=== PATIENT | male | born 1980 | race Caucasian/White ===

== ENCOUNTER 2017-03-20 16:10 | Emergency (ER) | payer BC ==
[2017-03-20 16:17] VITALS: BP 135/70
[2017-03-20] MEDS ORDERED: Tetan/Diph/Pertus SYR(Tdap)* 0.5 ML SYR(BOOSTRIX) use SYR IM ONE (16:17)
--- NOTE | 2017-03-20 16:41 | UC ---
Bite Injury/Animal HPI - HPI Summary HPI Summary: The patient comes in today for: 1. Dog bite, posterior right thigh: Onset: 3 days ago. Palliative/provocative: Pressing on the area makes it worse. Quality: Stabbing sensation--like a muscle strain. Region: Posterior, lateral right thigh. Severity: 5/10 Time: Constant. Associated symptoms: Event: He climbed over this brother's home fence and his brother's dog came up behind him and bit him once. His brother's came and got the dog. The brother states that the dog has had all his shots. He has noticed over the next several days there has been more ecchymosis. There is less swelling, but about the same soreness. However, there is more redness. There is "a lot more black and blue." He has some induration, but no discharge. Fevers: No temperatures taken at home. Home treatment: Hydrogen peroxide. Last tetanus: He states that he is pretty sure that he has had his last tetanus in the last five years when he had a laceration repair. Pain control: He states that he does not want any medications for pain control. * - History of Current Complaint Chief Complaint: UCBiteInjury Stated Complaint: DOG BITE Time Seen by Provider: 03/20/17 16:30 Hx Obtained From: Patient - Allergies/Home Medications Allergies/Adverse Reactions: Allergies Allergy/AdvReac Type Severity Reaction Status Date / Time No Known Allergies Allergy Verified 09/08/16 16:15 PMH/Surg Hx/FS Hx/Imm Hx Previously Healthy: Yes Other History Of: Negative For: HIV, Hepatitis B, Hepatitis C, Anticoagulant Therapy - Surgical History Surgical History: None - Family History Known Family History: Positive: Hypertension, Diabetes, Other - Cancer, diverticulitis Negative: Cardiac Disease - Social History Occupation: Employed Full-time Alcohol Use: None Substance Use Type: None Smoking Status (MU): Never Smoked Tobacco Type: Smokeless Tobacco Amount Used/How Often: 1 can per day Length of Time of Smoking/Using Tobacco: Since he was 18 years old Have You Smoked in the Last Year: No Household Exposure Type: Cigarettes - Immunization History Most Recent Influenza Vaccination: never Most Recent Tetanus Shot: up to date Most Recent Pneumonia Vaccination: never Review of Systems Constitutional: Negative Skin: Rash Eyes: Negative ENT: Negative Respiratory: Negative Cardiovascular: Negative Gastrointestinal: Negative Genitourinary: Negative All Other Systems Reviewed And Are Negative: Yes Physical Exam Triage Information Reviewed: Yes Appearance: Well-Appearing, No Pain Distress, Well-Nourished Vital Signs: Initial Vital Signs Temp 101.0 F 03/20/17 16:13 Pulse 77 03/20/17 16:13 Resp 18 03/20/17 16:13 BP 135/70 03/20/17 16:13 Pulse Ox 98 03/20/17 16:13 Vital Signs Reviewed: Yes Eyes: Positive: Conjunctiva Clear. Negative: Discharge ENT: Positive: Hearing grossly normal. Negative: Pharyngeal erythema, Nasal congestion, Nasal drainage, TM bulging, TM dull, TM red, Tonsillar swelling, Tonsillar exudate Dental: Negative: Gross Decay/Caries @, Dental Fracture @ Neck: Positive: Supple, Nontender, No Lymphadenopathy. Negative: Nuchal Rigidity Respiratory: Positive: Chest non-tender, Lungs clear, No respiratory distress, No accessory muscle use. Negative: Crackles, Wheezing Cardiovascular: Positive: RRR, No Murmur Abdomen Description: Positive: Nontender, No Organomegaly, Soft. Negative: Distended, Guarding Musculoskeletal: Positive: Strength Intact, ROM Intact Neurological: Positive: Alert, Muscle Tone Normal Psychological: Positive: Age Appropriate Behavior, Consolable Skin: Positive: rashes - He has an ecchymotic area: 10 cm x 10 cm. Induration area: 4 cm x 3 cm. There is no fluctuance. There is no enlarged or tender right inquinal lymph nodes. Bite Injury Course/Dx - Differential Dx/Diagnosis Differential Diagnosis/HQI/PQRI: Cellulitis Provider Diagnoses: contusion of the right thigh. Dog bite of the right thigh Discharge - Discharge Plan Condition: Stable Disposition: HOME Patient Education Materials: Animal Bite (ED), Contusion in Adults (ED) Referrals: Ady Ramesh MD [Primary Care Provider] - 1 Week (Please see your primary care provider in a week to see how well you are doing. If you get worse, please be seen sooner in the ER or through us.)
== END 2017-03-20 17:05 | disposition home or self-care (01) ==
LOC: UCEAST 16:10
DX: S70.11XA Contusion of right thigh, initial encounter (principal); W54.0XXA Bitten by dog, initial encounter; Y92.007 Garden or yard of unspecified non-institutional (private) residence as the place of occurrence of the external cause; F17.220 Nicotine dependence, chewing tobacco, uncomplicated
CPT/HCPCS: 99212; G0463

== ENCOUNTER 2019-10-14 10:37 | Emergency (ER) | payer BC ==
--- NOTE | 2019-10-14 10:45 | UC ---
Cardiac HPI - HPI Summary HPI Summary: 39 yo male presents with abdominal pain. He tells me that over the last week he has had a burning in his chest with pain in his epigastric region. He has vomited when trying to eat or drink anything for the last week. He has also had diarrhea multiple times daily. Additionally, he reports left neck pain that radiates into his left shoulder and arm that is intermittent. Does not change or reproduce with movement or palpation. Not associated with any activity. He has tried taking tums and baking soda for his stomach with no relief. He has a hx of diverticulitis and is concerned about this today. He does smoke and drink daily. Last night had chest pain that lasted about 20minutes before subsided. Denies fever, chills, SOB, back pain, dysuria, blood in stool. - History of Current Complaint Stated Complaint: ABDOMINAL PAIN Time Seen by Provider: 10/14/19 10:44 Hx Obtained From: Patient Onset/Duration: Sudden Onset Initial Severity: Mild Current Severity: Mild Pain Intensity: 3 - Allergy/Home Medications Allergies/Adverse Reactions: Allergies Allergy/AdvReac Type Severity Reaction Status Date / Time No Known Allergies Allergy Verified 10/14/19 11:34 PMH/Surg Hx/FS Hx/Imm Hx - Additional Past Medical History Additional PMH: None Other History Of: Negative For: HIV, Hepatitis B, Hepatitis C, Anticoagulant Therapy - Surgical History Surgical History: None - Family History Known Family History: Positive: Hypertension, Diabetes, Other - Cancer, diverticulitis Negative: Cardiac Disease - Social History Occupation: Employed Full-time Lives: With Family Alcohol Use: None Substance Use Type: None Smoking Status (MU): Never Smoked Tobacco Type: Smokeless Tobacco Amount Used/How Often: 1 can per day Length of Time of Smoking/Using Tobacco: Since he was 18 years old Have You Smoked in the Last Year: No Household Exposure Type: Cigarettes - Immunization History Most Recent Influenza Vaccination: never Most Recent Tetanus Shot: up to date Most Recent Pneumonia Vaccination: never Review of Systems All Other Systems Reviewed And Are Negative: No Constitutional: Positive: Negative Skin: Positive: Negative Eyes: Positive: Negative ENT: Positive: Negative Respiratory: Positive: Negative Cardiovascular: Positive: Chest Pain Gastrointestinal: Positive: Abdominal Pain, Vomiting, Diarrhea, Nausea Genitourinary: Positive: Negative Neurovascular: Positive: Negative Neurological: Positive: Negative Psychological: Positive: Negative Physical Exam - Summary Physical Exam Summary: GENERAL: NAD. WDWN. No pain distress. SKIN: No rashes, sores, lesions, or open wounds. NECK: Supple. Nontender. No lymphadenopathy. CHEST: CTAB. No r/r/w. No accessory muscle use. Breathing comfortably and in no distress. CV: RRR. Pulses intact. Cap refill <2seconds ABDOMEN: Soft. Mild ttp epigastric region. No distention or guarding. No CVA tenderness. Bowel sounds present NEURO: Alert. PSYCH: Age appropriate behavior. Triage Information Reviewed: Yes Vital Signs: Vital Signs: Temp Pulse Resp BP Pulse Ox 98.7 F 73 20 154/95 99 10/14/19 10:50 10/14/19 10:50 10/14/19 10:50 10/14/19 10:50 10/14/19 10:50 Vital Signs Reviewed: Yes Diagnostics - EKG Summary of EKG Findings: EKG 71bpm NSR. No STEMI as read by Dr. Nj - Assessment/Plan Course Of Treatment: EKG as above. I have a low suspicion that his symptoms are cardiac related. Given his smoking and alcohol history with 1 week of epigastric pain and vomiting - this could represent an ulcer, pancreatitis, or biliary pathology. He does have a hx of diverticulitis - he is most concerned about this today. Recommend going to the ED for further evaluation - pt agreeable to this and will go there now. - Clinical Impression Provider Diagnosis: Epigastric pain, Chest pain, Vomiting Discharge ED - Sign-Out/Discharge Documenting (check all that apply): Patient Departure All imaging exams completed and their final reports reviewed: No Studies - Discharge Plan Condition: Stable Disposition: HOME-RECOMMEND TO ED Referrals: Ady Ramesh MD [Primary Care Provider] - Additional Instructions: Please go to the ER for further evaluation of your abdominal pain and vomiting - Billing Disposition and Condition Condition: STABLE Disposition: Home-Recommend to ED - Attestation Statements Provider Attestation: This patient was not seen by me. I was available for consult. Chart reviewed. KYREE
[2019-10-14 10:56] VITALS: BP 154/95
== END 2019-10-14 11:00 | disposition home health service (06) ==
LOC: UCEAST 10:37
DX: R07.9 Chest pain, unspecified (principal); R10.13 Epigastric pain; R11.10 Vomiting, unspecified; M54.2 Cervicalgia; R11.0 Nausea; R19.7 Diarrhea, unspecified
CPT/HCPCS: 99212; G0463

== ENCOUNTER 2019-10-14 11:22 | Emergency (ER) | payer BC ==
--- NOTE | 2019-10-14 12:17 | ED ---
Abdominal Pain/Male - HPI Summary HPI Summary: 39 y/o male presented to [facility] complaining of upper abdominal pain in the epigastric present for the last week. Pt has had yellow diarrhea, bright yellow urine, nausea, and vomiting with decreased appetite. He states that he feels bloated and has neck pain that radiates down through his left arm. He went into work this morning but notes that he feels fatigued. Symptoms rated 4/10 in severity. He has a Hx of diverticulitis for which he was in [facility] for 8-9 days as well as Hx of degenerative disc disease. He takes medical marijuana chronically for pain. He does not drink alcohol. - History of Current Complaint Chief Complaint: EDAbdPain Stated Complaint: ABD PAIN Time Seen by Provider: 10/14/19 12:11 Hx Obtained From: Patient Onset/Duration: Lasting Days - one week, Still Present Timing: Constant Severity Currently: Moderate Pain Intensity: 4 Pain Scale Used: 0-10 Numeric Location: Epigastric Radiates: No Aggravating Factor(s): Food Alleviating Factor(s): Nothing Associated Signs And Symptoms: Positive: Decreased Appetite, Nausea, Vomiting, Diarrhea - yellow, Other - decreased oral intake, bright yellow urine, fatigue. Negative: Constipation - Allergies/Home Medications Allergies/Adverse Reactions: Allergies Allergy/AdvReac Type Severity Reaction Status Date / Time No Known Allergies Allergy Verified 10/14/19 11:34 PMH/Surg Hx/FS Hx/Imm Hx Endocrine/Hematology History: Denies: Hx Anticoagulant Therapy, Hx Diabetes, Hx Thyroid Disease Cardiovascular History: Denies: Hx Congestive Heart Failure, Hx Deep Vein Thrombosis, Hx Hypertension , Hx Myocardial Infarction, Hx Pacemaker/ICD Respiratory History: Denies: Hx Asthma, Hx Chronic Obstructive Pulmonary Disease (COPD), Hx Lung Cancer, Hx Pneumonia, Hx Pulmonary Embolism GI History: Reports: Other GI Disorders - diverticulitis Denies: Hx Gall Bladder Disease, Hx Gastrointestinal Bleed, Hx Ulcer, Hx Urosepsis History: Denies: Hx Kidney Stones, Hx Renal Disease Musculoskeletal History: Reports: Hx Back Problems - degenerative disc disease Neurological History: Denies: Hx Dementia, Hx Migraine, Hx Seizures, Hx Transient Ischemic Attacks (TIA) Psychiatric History: Denies: Hx Anxiety, Hx Depression, Hx Schizophrenia, Hx Bipolar Disorder - Surgical History Surgical History: None Surgery Procedure, Year, and Place: none Infectious Disease History: No Infectious Disease History: Denies: Hx Clostridium Difficile, Hx Hepatitis, Hx Human Immunodeficiency Virus (HIV), Hx of Known/Suspected MRSA, Hx Shingles, Hx Tuberculosis, Hx Known/ Suspected VRE, Hx Known/Suspected VRSA, History Other Infectious Disease, Traveled Outside the [place] in Last 30 Days - Family History Known Family History: Positive: Hypertension, Diabetes, Other - Cancer, diverticulitis Negative: Cardiac Disease - Social History Alcohol Use: None Hx Substance Use: No Substance Use Type: Reports: None Substance Use Comment - Amount & Last Used: medical marijuana for djd and divertic Hx Tobacco Use: Yes Smoking Status (MU): Never Smoked Tobacco Type: Smokeless Tobacco Amount Used/How Often: 1 can per day Length of Time of Smoking/Using Tobacco: Since he was 18 years old Have You Smoked in the Last Year: No Review of Systems Positive: Fatigue Positive: Abdominal Pain - epigastric, Vomiting, Diarrhea - yellow, Other - decreased appetite/oral intake Positive: other - bright yellow urine Positive: Myalgia - neck radiating to arm All Other Systems Reviewed And Are Negative: Yes Physical Exam - Summary Physical Exam Summary: Appearance: The patient is well-nourished in no acute distress and in no acute pain. Skin: The skin is warm and dry, and skin color reflects adequate perfusion. HEENT: The head is normocephalic and atraumatic. The pupils are equal and reactive. The conjunctivae are clear and without drainage. Nares are patent and without drainage. Mouth reveals moist mucous membranes, and the throat is without erythema and exudate. The external ears are intact. The ear canals are patent and without drainage. The tympanic membranes are intact. Neck: The neck is supple with full range of motion and non-tender. There are no carotid bruits. There is no neck vein distension. Respiratory: Chest is non-tender. Lungs are clear to auscultation and breath sounds are symmetrical and equal. Cardiovascular: Heart is regular rate and rhythm. There is no murmur or rub auscultated. There is no peripheral edema and pulses are symmetrical and equal. Abdomen: The abdomen is soft with tenderness in the epigastrium. There are normal bowel sounds heard in all four quadrants and there is no organomegaly palpated. Musculoskeletal: There is no back tenderness noted. Extremities are non-tender with full range of motion. There is good capillary refill. There is no peripheral edema or calf tenderness elicited. Neurological: Patient is alert and oriented to person, place and time. The patient has symmetrical motor strength in all four extremities. Cranial nerves are grossly intact. Deep tendon reflexes are symmetrical and equal in all four extremities. Psychiatric: The patient has an appropriate affect and does not exhibit any anxiety or depression. Triage Information Reviewed: Yes Vital Signs On Initial Exam: Initial Vitals Temp Pulse Resp BP Pulse Ox 99.0 F 75 19 131/89 98 10/14/19 11:32 10/14/19 11:32 10/14/19 11:32 10/14/19 11:32 10/14/19 11:32 Vital Signs Reviewed: Yes Procedures - Sedation Patient Received Moderate/Deep Sedation with Procedure: No Diagnostics - Vital Signs Vital Signs Temp Pulse Resp BP Pulse Ox 10/14/19 11:32 99.0 F 75 19 131/89 98 - Laboratory Result Diagrams: 10/14/19 12:28 10/14/19 12:28 Lab Statement: Any lab studies that have been ordered have been reviewed, and results considered in the medical decision making process. - CT Abd/Pel CT CT Interpretation Completed By: Radiologist Summary of CT Findings: IMPRESSION: DIVERTICULOSIS. This report was reviewed by the ED physician. - EKG 1317 Cardiac Rate: NL - 65 bpm EKG Rhythm: Sinus Rhythm Summary of EKG Findings: Normal sinus rhythm at 65bpm, normal ST, no ectopy, no STEMI. This EKG was reviewed and interpreted by the ED physician. Abdominal Pain Male Course/Dx - Course Course Of Treatment: Mr. Potter presented with epigastric pain and diarrhea for several days. He has been unable to eat because of it. He was nontoxic in appearance with stable vitals. An IV was established and he was given IV fluids while labs were obtained. Additionally he was given Protonix IV and stated that this improved his pain significantly. CT scan was unremarkable. I recommended treatment with Prilosec temporarily and follow-up with his PCP to consider further testing. - Diagnoses Provider Diagnoses: Epigastric pain Discharge ED - Sign-Out/Discharge Documenting (check all that apply): Patient Departure - dc - Discharge Plan Condition: Stable Disposition: HOME Prescriptions: Omeprazole CAP (NF) [Prilosec CAP* 20 MG] 20 mg PO BID #20 mora. Patient Education Materials: Epigastric Pain (ED) Referrals: Ady Ramesh MD [Primary Care Provider] - 3 Days Additional Instructions: Follow up with your primary care provider in 1-3 days. If you experience new or worsening symptoms please return to the ER. - Billing Disposition and Condition Condition: STABLE Disposition: Home - Attestation Statements Document Initiated by Jolanta: Yes Documenting Scribe: Celia Lay Provider For Whom Jolanta is Documenting (Include Credential): Heladio Sands MD Scribe Attestation: ICelia, scribed for Heladio Sands MD on 10/14/19 at 1957. Scribe Documentation Reviewed: Yes Provider Attestation: The documentation as recorded by the Celia woodard accurately reflects the service I personally performed and the decisions made by me, Heladio Sands MD Status of Scribe Document: Viewed
[2019-10-14] MEDS ORDERED: Pantoprazole IV* 40 MG IV ONE (12:18)
[2019-10-14] MEDS ORDERED: NS 0.9% 1000 ML** 1,000 ML IV ONE ×2 (12:18→14:18)
[2019-10-14 12:38] LABS: ABS Basophils 0.1 10^3/ul (0-0.2); ABS Eosinophils 0.2 10^3/ul (0-0.6); ABS Lymphocytes 2.6 10^3/ul (1.0-4.8); ABS Monocytes 0.7 10^3/ul (0-0.8); ABS Neutrophils 5.2 10^3/ul (1.5-7.7); Hematocrit 45 % (42-52); Hemoglobin 15.7 g/dL (14.0-18.0); Mean Corpuscular HGB Conc 35 g/dL (31-36); Mean Corpuscular Hemoglobin 31 pg (27-31); Mean Corpuscular Volume 88 fL (80-94); Mean Platelet Volume 7.6 fL (7.4-10.4); Nucleated Red Blood Cells % 0.1; Platelet Count 270 10^3/uL (150-450); Red Blood Count 5.11 10^6 /uL (4.18-5.48); Red Cell Distribution Width 13 % (10-15); White Blood Count 8.7 10^3/uL (3.5-10.8)
[2019-10-14 12:57] LABS: Albumin 4.7 g/dL (3.2-5.2); Albumin/Globulin Ratio 1.9 (1-3); BUN/Creatinine Ratio 21.9 (8-20); C Reactive Protein 4.58 mg/L (<8.01); Calcium 8.7 mg/dL (8.6-10.3); EGFR African American 106.6 (>60); EGFR Non-African American 88.1 (>60); Globulin 2.5 g/dL (2-4); Potassium 4.2 mmol/L (3.5-5.0); Total Bilirubin 0.6 mg/dL (0.2-1.0); Total Protein 7.2 g/dL (6.4-8.9)
[2019-10-14 16:18] VITALS: BP 132/80
== END 2019-10-14 16:17 | disposition home or self-care (01) ==
LOC: ED 11:22
DX: R10.13 Epigastric pain (principal); R11.2 Nausea with vomiting, unspecified; R53.83 Other fatigue; M54.2 Cervicalgia; R19.7 Diarrhea, unspecified
CPT/HCPCS: 36415; 74176; 80053; 83605; 83690; 85025; 86140; 93005; 96374; 99283